=== PATIENT | female | born 1965 | race Caucasian/White ===

== ENCOUNTER 2018-11-29 06:01 | Day surgery (SDC) | payer OTHER ==
[2018-11-26 15:51] VITALS: BMI 30.5
[2018-11-29] VITALS (10 sets, daily range): BP systolic 114–129; BP diastolic 44–75; PULSE 75–96; RESP 10–21; Ht 162.6 cm; Wt 79.4 kg
[~2018-11-29] VITALS: Ht 162.6 cm; Wt 79.4 kg
[~2018-11-29 06:01] MED LIST: CEFAZOLIN 2 GM/50 ML (PMX) 50 ML IVPB SCH; SOD CHLORIDE 0.9% 1,000 ML IV SCH
[2018-11-29] MEDS ORDERED: BUPIVACAINE 0.5%/EPI (SDV) 30 ML INJ ONE (06:48)
[2018-11-29] MEDS ORDERED: LIDOCAINE 1%/EPI (1:100,000) (MDV) 20 ML ONE (06:53)
[2018-11-29] MEDS ORDERED: BUPIVACAINE 0.25% (MPF) 30 ML INJ ONE (06:53)
[2018-11-29] MEDS ORDERED: HYDROmorphONE 2 MG/ML SYG ONE (07:00)
[2018-11-29] MEDS ORDERED: CEFAZOLIN 1 GM INJ ONE (07:00)
[2018-11-29] MEDS ORDERED: ONDANSETRON 4 MG INJ ONE (07:00)
[2018-11-29] MEDS ORDERED: DEXAMETHASONE 4 MG/ML 5 ML INJ ONE (07:00)
--- NOTE | 2018-11-29 07:14 | PREAC ---
Date/Time of Note Date/Time of Note DATE: 11/29/18 TIME: 07:13 Anesthesia Eval and Record Evaluation Time Pre-Procedure Interview DATE: 11/29/18 TIME: 07:13 Age 53 Sex female NPO: 8 hrs Preoperative diagnosis Large L upper back mass Planned procedure removal of left upper back mass Past Medical History Past Medical History: None Surgery & Anesthesia Issues No known issue Meds Anticoagulation: No Beta Alexandra within 24 hr: No Reason Beta Alexandra not given: Pt. not on B-Alexandra No Active Prescriptions or Reported Meds Current Medications Cefazolin Sodium/ Dextrose 50 ml @ 100 mls/hr PRE-OP IVPB ; Start 11/29/18 at 06:00 Sodium Chloride 1,000 ml @ 75 mls/hr [id number] IV ; Start 11/29/18 at 06:00; Stop 11/29/18 at 18:00 Meds reviewed: Yes Allergies Coded Allergies: No Known Drug Allergy (Verified Allergy, Unknown, 11/26/18) Allergies Reviewed: Yes Labs/Studies Labs Reviewed: Reviewed by anesthesiologist test: Negative Studies: ECG, CXR Pre-procedure Exam Last vitals Vital Signs Date Temp Pulse Resp B/P (MAP) Pulse Ox O2 O2 Flow FiO2 Time Delivery Rate 11/29/18 98.1 75 18 120/75 98 Room Air 07:05 (90) Airway: Adequate mouth opening, Adequate thyromental dist Mallampati: Mallampati III Teeth: Normal Lung: Normal Heart: Normal ASA Physical Status ASA physical status: 2 Emergency: None Planned Anesthetic General/MAC: LMA Planned Pain Management Parenteral pain med, Local by surgeon Pre-operative Attestations Prior to commencing anesthesia and surgery, the patient was re-evaluated, there was verification of: *The patient's identity *The results of appropriate recent lab work and preoperative vital signs *The above evaluation not changing prior to induction *Anesthetic plan, risk benefits, alternative and complications discussed with patient/family; questions answered; patient/family understands, accepts and wishes to proceed. HOSEA MATHIS MD Nov 29, 2018 07:14
[2018-11-29] MEDS ORDERED: PROPOFOL 20 ML ONE (07:17)
[2018-11-29] MEDS ORDERED: FENTAnyl 50 MCG/ML VIAL ONE (07:17)
[2018-11-29] MEDS ORDERED: LIDOCAINE 2% (SDV) 5 ML INJ ONE (07:17)
[2018-11-29] MEDS ORDERED: MIDAZOLAM 1 MG/ML 2 ML INJ ONE (07:17)
[2018-11-29] MEDS ORDERED: METOCLOPRAMIDE 10 MG INJ ONE (07:18)
[2018-11-29] MEDS ORDERED: LEVALBUTEROL (NEB) 1.25 MG/0.5 ML AMP HHN PRN (07:30)
[2018-11-29] MEDS ORDERED: HYDROmorphONE 1 MG/5 ML IV SYRINGE IV PRN ×2 (07:30)
[2018-11-29] MEDS ORDERED: ONDANSETRON 4 MG INJ IV PRN (07:30)
[2018-11-29] MEDS ORDERED: MEPERIDINE 25 MG INJ IV PRN (07:30)
[2018-11-29] MEDS ORDERED: IPRATROPIUM (NEB) 0.5 MG/2.5 ML AMP HHN PRN (07:30)
[2018-11-29] MEDS ORDERED: DIPHENHYDRAMINE 50 MG INJ IV PRN (07:30)
[2018-11-29] MEDS ORDERED: FENTAnyl 50 MCG/ML VIAL IV PRN ×2 (07:30)
--- NOTE | 2018-11-29 07:39 | HPN ---
Date/Time of Note Date/Time of Note DATE: 11/29/18 TIME: 07:39 Interval H&P Admission Note Pt. seen H&P reviewed: No system changes RIGOBERTO BURNS MD Nov 29, 2018 07:39
--- NOTE | 2018-11-29 09:12 | OPR ---
Date/Time of Note Date/Time of Note DATE: 11/29/18 TIME: 09:06 Operative Report Procedure Date: Nov 29, 2018 Preoperative Diagnosis Upper back mass Postoperative Diagnosis Upper back mass Operation/Procedure Performed 1. Excision of upper back mass, submuscular, 14 cm. 2. Implantation of biological extracellular matrix Surgeon see signature line [employer] Consultant None Anesthesia Type: general Anesthesiologist: HOSEA MATHIS MD Estimated Blood Loss: 10 - 50 ml's Transfusion none Specimen Back mass Grafts/Implants Amniofill extracellular biological matrix 1000 mg Complications none Pt Condition Post Procedure: stable Disposition: PACU Indications The patient is an obese 53-year-old female who presented to the office complaining of a soft tissue mass of the upper back. This had been present for at least the past 7 years. Patient reported growth and increasing pain and discomfort. She was scheduled for elective excision for symptom relief and definitive pathological diagnosis. All risks and benefits of the procedure including, but not limited to: Wound infection, excessive bleeding, postoperative seroma/hematoma formation, mass recurrence, etc. Were all explained to the patient in full detail. She fully understood and wished to proceed with the procedure. Informed consent was obtained. Procedure Description Patient was brought to the operating room and placed supine on the operating table. Bilateral sequential compression devices were placed on both lower extremities. A dose of broad-spectrum perioperative intravenous antibiotics was given. The mass had been preoperatively marked and confirmed with the patient in the holding area. After the induction of smooth general anesthesia the patient was then positioned in the right lateral decubitus position with the left side up. Patient's back was prepped and draped in standard surgical fashion. After performance of the surgical timeout, 0.5% Marcaine with epinephrine was injected over the area of the incision. Transverse incision was then made over the mass using a 15 blade scalpel. Incision was carried down through the skin and subcutaneous tissues using sharp dissection and Bovie electrocautery. Dissection was continued down to the level of the fascia which was incised. The muscle was also incised. Underneath the muscle, a large lipomatous neoplasm was identified. It was sitting right on top of the rib cage. The mass was then dissected free of surrounding tissues using comminution of blunt dissection and Bovie electrocautery. All bleeders were cauterized. Once delivered into the field, the mass was then transected at its base and passed off the field as specimen. It measured approximately 14 cm in maximal dimension. Hemostasis was then inspected for and obtained. The wound cavity was irrigated with warm saline and the irrigant returned clear. Given the large size of the mass and the resultant cavity, 1000 mg of amnio fill extracellular biological matrix powder was spread over the deep tissues to aid in wound reg eneration and prevention of infection and seroma. The muscle and the fascia were then reapproximated using running 2-0 Vicryl suture. The deep tissues were reapproximated using running 3-0 Vicryl suture. For the local anesthesia was applied around the skin of the incision site. The skin was then reapproximated with skin petra. Incision was then cleaned and sterile dressings were applied. The patient was awoken from anesthesia and transported to the recovery room in stable condition. All counts were correct at the end of the case x2. RIGOBERTO BURNS MD Nov 29, 2018 09:12
[2018-11-29] MEDS ORDERED: KETOROLAC 30 MG INJ IV PRN (09:30)
[2018-11-29] MEDS ORDERED: HYDROCODONE/APAP (5/325) TAB PO PRN (09:30)
[2018-11-29] MEDS ORDERED: IBUPROFEN 600 MG TAB PO PRN (09:30)
--- NOTE | 2018-11-29 15:15 | PAC ---
Date/Time of Note Date/Time of Note DATE: 11/29/18 TIME: 15:15 Post-Anesthesia Notes Post-Anesthesia Note Last documented vital signs Vital Signs Date Temp Pulse Resp B/P (MAP) Pulse Ox O2 O2 Flow FiO2 Time Delivery Rate 11/29/18 96.9 86 18 120/62 99 10:00 (81) 11/29/18 Room Air 09:47 11/29/18 8.0 09:27 Activity: WNL Respiratory function: WNL Cardiovascular function: WNL Mental status: Baseline Pain reasonably controlled: Yes Hydration appropriate: Yes Nausea/Vomiting absent: Yes HOSEA MATHIS MD Nov 29, 2018 15:15
== END 2018-11-29 10:20 | disposition home or self-care (01) ==
LOC: SDS 06:01
PROVIDERS: ATTEND Surgery
DX: D17.1 Benign lipomatous neoplasm of skin and subcutaneous tissue of trunk (principal)
CPT/HCPCS: 21933; 88307; J0690; J1100; J1170; J2250; J2405; J2765; J3010